=== PATIENT | female | born 1985 | race African-American/Black ===

== ENCOUNTER 2017-12-28 18:32 | Emergency (ER) | payer SELFPAY ==
[~2017-12-28] VITALS: Ht 170.2 cm; Wt 121.1 kg
[2017-12-28] MEDS ORDERED: PENICILLIN G BENZATHINE LA 1.2 MU TBX IM STA (19:29)
--- OUTSIDE RECORDS SUMMARY | 2018-01-05 12:09 | XMS REPORT | Clinical Summary ---
Author Author DANIELITO [facility] Address Unknown Phone Unavailable Care Team Providers Care Hand Molder Name Role Phone PCP Unavailable Allergies Active [...]
== END 2017-12-28 20:00 | disposition short-term general hospital (02) ==
LOC: ER 18:32
DX: J02.9 Acute pharyngitis, unspecified (principal)

== ENCOUNTER 2017-12-28 19:21 | Emergency (ER) | payer OTHER ==
[~2017-12-28] VITALS: Ht 170.2 cm; Wt 121.1 kg
[2017-12-28] MEDS ORDERED: PENICILLIN G BENZATHINE LA 1.2 MU TBX IM STA (19:40)
[2017-12-28] MEDS ORDERED: HYDROCODONE/APAP 5MG-325MG TAB PO ONE (19:45)
[2017-12-28 20:22] VITALS: BP 157/92
--- OUTSIDE RECORDS SUMMARY | 2018-01-05 12:09 | XMS REPORT | Clinical Summary ---
Author Author DANIELITO [facility] Address Unknown Phone Unavailable Care Team Providers Care Netbackup Engineer Name Role Phone PCP Unavailable Allergies Active Allergy Reactions Severity Noted Date Comments Ibuprofen Hives, Itching 05/13/2015 Iodinated Contrast- Oral Itching 02/28/2016 And Iv Dye Current Medications Prescription Sig. Disp. Refills Start End Date Status Date cyclobenzaprine Take 5 mg by mouth as Active (FLEXERIL) 5 MG tablet needed for Muscle spasms. diazePAM (VALIUM) 5 MG Take 1 tablet (5 mg 8 tablet 0 07/27/19 07/30/19 tablet total) by mouth every 8 18 18 (eight) hours as needed for Anxiety for up to 3 days. Max Daily Amount: 15 mg Active Problems Problem Noted Date Back pain 10/28/2016 Encounters Date Type Specialty Care Team Description 07/26/2017 Emergency Emergency Medicine Frank Gomez MD Neck pain (Primary Dx);Muscle spasm after 12/27/2016 Family History Medical History Relation Name Comments Hypertension Mother Relation Name Status Comments Mother Social History Tobacco Use Types Packs/Day Years Used Date Never Smoker Smokeless Tobacco: Never Used Alcohol Use Drinks/Week oz/Week Comments No Sex Assigned at Date Recorded Not on file Last Filed Vital Signs Vital Sign Reading Time Taken Blood Pressure 126/73 07/26/2017 9:48 PM CDT Pulse 82 07/26/2017 9:48 PM CDT Temperature 36.6 C (97.8 F) 07/26/2017 9:48 PM CDT Respiratory Rate 20 07/26/2017 9:48 PM CDT Oxygen Saturation 98% 07/26/2017 9:48 PM CDT Inhaled Oxygen - - Concentration Weight - - Height - - Body Mass Index - - Plan of Treatment Not on file Results Not on fileafter 12/27/2016
== END 2017-12-28 20:24 | disposition home or self-care (01) ==
LOC: FSED 19:21
DX: J02.0 Streptococcal pharyngitis (principal)
CPT/HCPCS: 96372; 99283; J0561

== ENCOUNTER 2018-12-04 10:48 | Emergency (ER) | payer OTHER ==
[~2018-12-04] VITALS: Ht 170.2 cm; Wt 125.3 kg
[2018-12-04] MEDS ORDERED: CYCLOBENZAPRINE10 MG PO (11:37)
[2018-12-04] MEDS ORDERED: ULTRAM50 MG PO (11:37)
[2018-12-04] MEDS ORDERED: TRAMADOL HCL 50 MG TAB PO ONE (11:45)
[2018-12-04 11:53] VITALS: BP 125/84
== END 2018-12-04 11:46 | disposition home or self-care (01) ==
LOC: FSED 10:48
DX: J00 Acute nasopharyngitis [common cold] (principal); G24.3 Spasmodic torticollis; Z88.6 Allergy status to analgesic agent
CPT/HCPCS: 83518; 93005; 99283

== ENCOUNTER 2019-02-18 13:50 | Emergency (ER) | payer OTHER ==
[~2019-02-18 13:50] MED LIST: CYCLOBENZAPRINE10 MG PO; ULTRAM50 MG PO
--- OUTSIDE RECORDS SUMMARY | 2019-02-18 13:53 | XMS REPORT ---
[facility] Address Unknown Phone Unavailable Care Team Providers Care Rn Lvn Name Role Phone GENE BLACKMAN YANNICK Unavailable Unavailable JUAN ALBERTO ROCHA Unavailable Unavailable Payers Payer Name Policy Type Policy Number Effective Date Expiration Date Problems This patient has no known problems. Allergies, Adverse Reactions, Alerts Allergy Name Allergy Type Status Severity Reaction(s) Onset Date Inactive Date Treating Clinician Comments ibuprofen DA Active SV 2018-09-22 00:00:00 ibuprofen DA Active SV 2018-09-20 00:00:00 ibuprofen DA Active SV 2016-12-26 00:00:00 Medications This patient has no known medications. Results Test Description Test Time Test Comments Text Results Atomic Results Result Comments RAD, FOOT, MIN 3 VIEWS, LEFT 2019-02-05 13:24:00 Reason for exam:->FOOT INJURYIs the patient ?->NoShould this be performed at the bedside?->No FINAL REPORT Exam: Left foot 3 views Clinical History: Foot injury Findings: There is no evidence of acute fracture or malalignment. The articular joints are well-preserved. The soft tissue is unremarkable. Impression: No radiographic evidence of acute osseous injury. Signed: Jonah Bowie MDReport Verified Date/Time: 02/05/2019 13:24:57 Reading Location: [facility] C013X [facility] Reading Room UCTS OF CONCEPTION 2018-09-28 19:07:00 RUN DATE: 09/29/18 [facility] PAGE 1 RUN TIME: 1041 Specimen Inquiry RUN USER: INTERFACE PATIENT: JOSE JIMÉNEZ LOC: MANJINDER U #: [id number] AGE/SX: 33/F ROOM: RE09/24/18REG DR: Ruth Ann Gudino MD : 89 BED: DIS: STATUS: [facility] TLOC: SPEC #: [id number] RECD: 09/24/18 STATUS: BLAISE REArleth #: [id number] JUSTIN: 09/24/18- SUBM DR: Ruth Ann Gudino MD ENTERED: 09/27/18 SP TYPE: POC[ OTHR : ORDERED: LEVEL IV CODES: [id number] - ENDOMETRIUM, NO PROCEDURES: LEVEL IV (Incomplete) TISSUES: ENDOMETRIUM, NOS - POC CLINICAL HISTORY Not provided (kr) FINAL DIAGNOSIS Designated "products of conception": - products of conception identified - block A2 is sent to [facility] for p57 and ploidy analysis to investigate the possibility of a molar , see results in addendum report ADDENDUM PENDING, SPECIMEN IS BEING SENT TO [facility] Tissue code 1 CPT code(s): 35400 pkg/wpd 09/28/18 GROSS DESCRIPTION ANATOMIC SOURCE OF TISSUE (per Requisition): Products of conception The specimen is received in a formalin-filled container, labeled with the patient's name and designated "pr oducts of conception". The specimen consists of an 8 x 7 x 1 cm aggregate of multiple monroe-red, focally hemorrhagic, soft, rubbery, and slightly papilliferous tissues admixed with clotted blood. There are no parts. Internet Assessor sections are submitted labeled A1 and A2. silvina/tank 09/27/18 @ 0951 MICROSCOPIC DESCRIPTION The specimen consists of several clusters of immature chorionic villi containing mild trophoblast proliferation that is mainly polar. Some of the villi have scalloped outlines and a few intravillous inclusions are identified. No central cisterns are identified. Nucleated red blood cells are seen in the vascular spaces. CONTINUED ON NEXT PAGE RUN DATE: 09/29/18 [facility] PAGE 2 RUN TIME: 1041 Specimen Inquiry RUN USER: INTERFACE SPEC #: [id number] PATIENT: JOSE JIMÉNEZ #[id number] (Continued) MICROSCOPIC DESCRIPTION (Continued) No structures are identified. biju/lane 09/28/18 Signed Diana Santana 09/28/18 1907 END OF REPORT PRODUCTS OF CONCEPTION 2018-09-28 19:07:00 RUN DATE: 10/04/18 [facility] PAGE 1 RUN TIME: 1418 Specimen Inquiry RUN USER: INTERFACE PATIENT: JOSE JIMÉNEZ LOC: MANJINDER U #: [id number] AGE/SX: ROOM: RE09/24/18REG DR: Ruth Ann Gudino MD : 89 BED: DIS: STATUS: [facility] TLOC: SPEC #: [id number] RECD: 09/24/18 STATUS: BLAISE RE #: [id number] JUSTIN: 09/24/18- SUBM DR: Ruth Ann Gudino MD ENTERED: 09/27/18 SP TYPE: POC[ OTHR DR: ORDERED: LEVEL IV ADDENDUM FINDINGS Addendum #1 Entered: 10/04/18 The following are the p57 and Ploidy Analysis received from [facility] on October 02, 2018 ADDENDUM FINAL DIAGNOSIS: - 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 Focally, some larger, slightly irregular, villi are also noted. Trophoblast proliferation is focal and generally polarized. No pseudoinclusions are seen. p57 stains villous trophoblast nuclei. The p57 (KIP2) gene (CDKN1C) is strongly paternally imprinted, being expressed from the maternal allele in most cases. Because complete moles contain only paternal genes, complete moles show absence or significantly reduced expression of p57 (KIP2) relative to partial moles or a hydropic abortus which contain both maternal and paternal genes. In normal placentas, partial moles and a hydropic abortus, P57 (KIP2) shows a strong and contiguous nuclear expression in cytotrophoblast and villous mesenchyme, irrespective of the morphology of the villi. In complete moles there is an absence of staining in the cytotrophoblast and villous mesenchyme while the intervillous trophoblast and decidua show strong expression and thus serves as a positive internal control. Ploidy study shows diploid DNA content in villous trophoblast nuclei. Combining the morphology, p57 expression and diploid DNA content, this is first trimester ch orionic villi with hydropic degeneration. IHC AND SPECIAL STAINS: All controls were reviewed and showed appropriate positive and negative reactivity. FLOW CYTOMETRY ANALYSIS RESULTS: CONTINUED ON NEXT PAGE RUN DATE: 10/04/18 [facility] PAGE 2 RUN TIME: 1418 Specimen Inquiry RUN USER: INTERFACE SPEC #: [id number] PATIENT: OJSE JIMÉNEZ #[id number] (Continued) ADDENDUM FINDINGS (Continued) DIPLOID DNA INDEX: 1.00 Reference Range: Diploid <=1.1 Aneuploid >1.1 S-Phase: 1.29 COMMENTS: A diploid DNA index may be seen with an abortus or complete mole. Please correlate with morphologic findings and p57 study. I acknowledge the above findings. Diana Santana M.D., Pathologist/ksr October 04, 2018 @ 0840 Addendum Signed Diana Santana 10/04/181417 (prelim) Diana Santana 10/04/18 141 CODES: [id number] - ENDOMETRIUM, NO PROCEDURES: LEVEL IV (Incomplete) TISSUES: ENDOMETRIUM, NOS - POC CLINICAL HISTORY Not provided (kr) FINAL DIAGNOSIS Designated "products of conception": - products of conception identified - block A2 is sent to [facility] for p57 and ploidy analysis to investigate the possibility of a molar , see results in addendum report ADDENDUM PENDING, SPECIMEN IS BEING SENT TO [facility] [employer] Tissue code 1 CPT code(s): 09879 pkg/wpd 09/28/18 CONTINUED ON NEXT PAGE RUN DATE: 10/04/18 [facility] PAGE 3 RUN TIME: 1418 Specimen Inquiry RUN USER: INTERFACE ---- SPEC #: [id number] PATIENT: JOSE JIMÉNEZ #[id number] (Continued) GROSS DESCRIPTION ANATOMIC SOURCE OF TISSUE (per Requisition): Products of conception The specimen is received in a formalin-filled container, labeled with the patient's name and designated "products of conception". The specimen consists of an 8 x 7 x 1 cm aggregate of multiple monroe-red, focally hemorrhagic, soft, rubbery, and slightly papilliferous tissues admixed with clotted blood. There are no parts. Internet Assessor sections are submitted labeled A1 and A2. neri 09/27/18 @ 0951 MICROSCOPIC DESCRIPTION The specimen consists of several clusters of immature chorionic villi containing mild trophoblast proliferation that is mainly polar. Some of the villi have scalloped outlines and a few intravillous inclusions are identified. No central cisterns are identified. Nucleated red blood cells are seen in the vascular spaces. No structures are identified. biju/wptiarra 09/28/18 Signed Diana Santana 09/28/18 1907 END OF REPORT CBC W/AUTO DIFF 2018-09-24 15:46:00 WHITE BLOOD CELL (test code=WBC) 8.0 K/mm3 6.6-12.1 RED BLOOD CELL (test code=RBC) 4.09 M/mm3 3.45-5.01 HEMOGLOBIN (test code=HGB) 11.9 g/dL 10.7-13.9 HEMATOCRIT (test code=HCT) 36.8 % 32.1-42.1 MEAN CELL VOLUME (test code=MCV) 90 fL 84.1-94.8 MEAN CELL HGB (test code=MCH) 29.1 pg 27-35 MEAN CELL HGB CONCETRATION (test code=MCHC) 32.3 gm/dL 32.2-34.1 RED CELL DISTRIBUTION WIDTH (test code=RDW) 14.1 % 12.4-16.5 PLATELET COUNT (test code=PLT) 312 K/mm3 133-385 IMMATURE PLATELET FRACTION (test code=IPF) 0.0 % 0.0-10.8 MEAN PLATELET VOLUME (test code=MPV) 9.9 fl 9.1-12.7 NEUTROPHIL % (test code=NT%) 65.8 % 56.5-79.4 LYMPHOCYTE % (test code=LY%) 27.0 % 14.3-34.3 MONOCYTE % (test code=MO%) 5.9 % 5.1-10.4 EOSINOPHIL % (test code=EO%) 0.9 % 0.1-3.0 BASOPHIL % (test code=BA%) 0.2 % 0.1-1.0 NEUTROPHIL # (test code=NT#) 5.3 K/mm3 LYMPHOCYTE # (test code=LY#) 2.2 K/mm3 MONOCYTE # (test code=MO#) 0.5 K/mm3 EOSINOPHIL # (test code=EO#) 0.07 K/mm3 BASOPHIL # (test code=BA#) 0.0 K/mm3 RBC MORPHOLOGY REQUIRED (test code=RBCM) NORMAL NORMAL PLATELET MORPHOLOGY REQUIRED (test code=PLTMR) NORMAL NORMAL - US PREG UT [id number] 22:23:00 Patient Name: JOSE JIMÉNEZ Unit No: [id number] EXAMS: CPT CODE: [id number] US PREG UT TRANSVAGINAL 96279 TRANSABDOMINAL AND TRANSVAGINAL OBSTETRICAL PELVIC ULTRASOUND INDICATION: . Vaginal bleeding.. TECHNIQUE: Transabdominal and transvaginal obstetrical pelvic ultrasound was performed with bernard scale and Doppler images. COMPARISONS: Obstetric ultrasound 09/20/2018 FINDINGS: TRANSABDOMINAL: The uterus measures 9.9 x 6.9 x 5.8 cm. There is an intrauterine gestational sac that measures 1.5 x 1.2 x 1.4 cm within the endometrial canal. The maternal right ovary measures 3.6 x 2 x 2.9 cm. The left ovary is not visualized with transabdominal technique. There is no intra-abdominal free fluid. Transvaginal pelvic ultrasound was performed in order to better visualize the pelvic structures. TRANSVAGINAL PELVIC ULTRASOUND: The uterus measures 5.5 x 6.4 x 7 cm. The cervix is closed and the cervical length is 3.5 cm. There is an incidental n abothian cyst in the cervix. There is a solitary intrauterine gestational s ac with yolk sac and pole. The pole length measures 0.7 cm, increa sed compared to prior where it had measured 0.4 cm. There is no heart mo tion detected. There was faint heart motion on 09/20/2018. The right o vary measures 4.4 x 2.8 x 2 cm and demonstrates normal blood flow. There is a corpus luteum in the right ovary that measures up to 2.1 cm. The left ovary measures 2.9 x 2.2 x 1.4 cm and demonstrates normal blood flow. There is a small to moderate amount of simple free fluid adjacent to the right ovary and corpus luteum. IMPRESSION: 1. There is a solitary intrauterine ge station with yolk sac and pole detected. Although there has been appro priate increase in size of the pole length compared to 09/20/2018, there is no heart motion detected on today's exam. heart motion was de tectable on 09/20/2018. I cannot confirm viability of the . I recomm end [facility] NAME: JOSE JIMÉNEZ Radiology Department PHYS: Heidi Arredondo MD [address] : 1985 AGE: 33 SEX: F [place], [place] [address] LOC: CandyERS PHONE #: [phone] EXAM DATE: 09/22/2018 STATUS: REG ER FAX #: [phone] RAD NO: Page 1 Signed Rep ort (CONTINUED) Patient Name: JOSE JIMÉNEZ Unit No: [id number] EXAMS: CPT CODE: [id number] US PREG UT TRANSVAGINAL 53935 <Continued> short-term follow-up evaluation with ultrasound and hCG to reevaluate. The estimated gestational age is 6 weeks and 4 days and the JJ is 05/10/2019. 2. There is a small to moderate amount of simple free fluid in the pelvis adjacent to the right ovary. There is a right ovarian corpus luteum. at 2223 Reported and signed by: Taras Mishra DO CC: Heidi Roper MD Technologist: Fanny Saxena Probe: [id number] Trnscrbd D/ (2223) [email or web address] Orig Print D/T: S: 09/22/2018 (2226) [facility] NAME: JOSE JIMÉNEZ Radiology Department PHYS: Heidi Arredondo MD [address] : 1985 AGE: 33 SEX: [place] [address] LOC: CandyERS PHONE #: [phone] EXAM DATE: 09/22/2018 STATUS: REG ER FAX #: [phone] RAD NO: Page 2 Signed Report Patient Name: JOSE JIMÉNEZ Unit No: [id number] EXAMS: CPT CODE: [id number] US PREG UT TRANSVAGINAL 44743 <Continued> [facility] NAME: JOSE JIMÉNEZ Radiology Department PHYS: ANNE MARIE.14 - Heidi Roper MD [address] : 1985 AGE: 33 SEX: F [place] [address] ACCT NO: [id number] LOC: MARIYA PHONE #: [phone] EXAM DATE: 05/2018 STATUS: REG ER FAX #: [phone] RAD NO: P age 5 Signed Report - US PREG EVAL 1ST [id number] 22:23:00 Patient Name: JOSE JIMÉNEZ Unit No: [id number] EXAMS: CPT CODE: [id number] US PREG EVAL 1ST TRIMTR 60242 TRANSABDOMINAL AND TRANSVAGINAL OBSTETRICAL PELVIC ULTRASOUND INDICATION: . Vaginal bleeding.. TECHNIQUE: Transabdominal and transvaginal obstetrical pelvic ultrasound was performed with bernard scale and Doppler images. COMPARISONS: Obstetric ultrasound 09/20/2018 FINDINGS: TRANSABDOMINAL: The uterus measures 9.9 x 6.9 x 5.8 cm. There is an intrauterine gestational sac that measures 1.5 x 1.2 x 1.4 cm within the endometrial canal. The maternal right ovary measures 3.6 x 2 x 2.9 cm. The left ovary is not visualized with transabdominal technique. There is no intra-abdominal free fluid. Transvaginal pelvic ultrasound was performed in order to better visualize the pelvic structures. TRANSVAGINAL PELVIC ULTRASOUND: The uterus measures 5.5 x 6.4 x 7 cm. The cervix is closed and the cervical length is 3.5 cm. There is an incidental nabothian cyst in the cervix. There is a solitary intrauterine gestational sac with yolk sac and pole. The pole length measures 0.7 cm, increased compared to prior where it had measured 0.4 cm. There is no heart motion detected. There was faint heart motion on 09/20/2018. The right ovary measures 4.4 x 2.8 x 2 cm and demonstrates normal blood flow. There is a corpus luteum in the right ovary that measures up to 2.1 cm. The left ovary measures 2.9 x 2.2 x 1.4 cm and demonstrates normal blood flow. There is a small to moderate amount of simple free fluid adjacent to the right ovary and corpus luteum. IMPRESSION: 1. There is a solitary intrauterine gestation with yolk sac and pole detected. Although there has been appropriate increase in size of the pole length compared to 09/20/2018, there is no heart motion detected on today's exam. heart motion was detectable on 09/20/2018. I cannot confirm viability of the . I recommend [facility] NAME: JOSE JIMÉNEZ Radiology Department PHYS: Heidi Arredondo MD [address] : 1985 AGE: 33 SEX: F [place] [address] LOC: Ayaka.ERS PHONE #: [phone] EXAM DATE: 09/22/2018 STATUS: REG ER FAX #: RAD NO: Page 1 Signed Rep ort (CONTINUED) Patient Name: JOSE JIMÉNEZ Unit No: [id number] EXAMS: CPT CODE: [id number] US PREG EVAL 1ST TRIMTR 54746 <Continued> short-term follow-up evaluation with ultrasound and hCG to reevaluate. The estimated gestational age is 6 weeks and 4 days and the JJ is 05/10/2019. 2. There is a small to moderate amount of simple free fluid in the pelvis adjacent to the right ovary. There is a right ovarian corpus luteum. at 2223 Reported and signed by: Taras Mishra DO CC: Heidi Roper MD Technologist: Fanny Saxena RDMS Probe: Trnscrbd D/ (2223) [email or web address] Orig Print D/T: S: 09/22/2018 (2226) [facility] NAME: JOSE JIMÉNEZ Radiology Department PHYS: Heidi Arredondo MD [address] : 1985 AGE: 33 SEX: [place] [address] LOC: Ayaka.ERS PHONE #: [phone] EXAM DATE: 09/22/2018 STATUS: REG ER FAX #: [phone] RAD NO: Page 2 Signed Report Patient Name: JOSE JIMÉNEZ Unit No: [id number] EXAMS: CPT CODE: [id number] US PREG EVAL 1ST TRIMTR 25476 <Continued> [facility] NAME: JOSE JIMÉNEZ Radiology Department PHYS: Heidi Arredondo MD [address] : 1985 AGE: 33 SEX: [place] [address] ACCT NO: [id number] LOC: MARIYA PHONE #: [phone] EXAM DATE: 05/2018 STATUS: REG ER FAX #: [phone] RAD NO: P age 5 Signed Report HCG SERUM 2018-09-22 20:33:00* Test Item Value Reference Range Comments HCG SERUM (test code=HCG) 36670 INTERPRETATION:VALUES BETWEEN 15-20 milliInternational units/mL NEED TO BERETESTED WITHIN 48 HOURS. All units for these ranges are in milliInternationalunits/mL0-1 WK AFTER CONCEPTION 0-50 1-2 WKS AFTER CONCEPTION 40-3002-3 WKS AFTER CONCEPTION 100-1,0003-4 WKS AFTER CONCEPTION 500-6,0001-2 MONTHS AFTER CONCEPTION 5,000-200,0002-3 MONTHS AFTER CONCEPTION 10,000-100,0002ND TRIMESTER 3,000-50,0003RD TRIMESTER 1,000-50,000 SPECIMENS WITH AN HCG LEVEL FROM 0-6 milliInternationalunits/mL SHOULD BE CONSIDERED NEGATIVE COMPREHENSIVE METABOLIC [id number] 20:25:00* Test Item Value Reference Range Comments SODIUM (test code=NA) 137 mEq/L 135-145 POTASSIUM (test code=K) 3.9 mEq/L 3.5-5.0 CHLORIDE (test code=CL) 103 mEq/L 100-115 CARBON DIOXIDE (test code=CO2) 27 mEq/L 22-31 ANION GAP (test code=GAP) 10.60 10-20 GLUCOSE (test code=GLU) 93 mg/dL 65-110 BLOOD UREA NITROGEN (test code=BUN) 9 mg/dL 7-18 GLOMERULAR FILTRATION RATE (test code=GFR) 82 ml/min >60 CREATININE (test code=CREAT) 0.9 mg/dL 0.5-1.0 TOTAL PROTEIN (test code=PROT) 7.2 gm/dL 6.3-8.2 ALBUMIN (test code=ALB) 3.1 gm/dL 3.4-4.8 CALCIUM (test code=CA) 9.2 mg/dL 8.4-10.2 BILIRUBIN TOTAL (test code=BILT) 0.3 mg/dL 0.2-1.0 Results verified by repeat analysis SGOT/AST (test code=AST) 21 units/L 15-37 SGPT/ALT (test code=ALT) 21 units/L 12-78 ALKALINE PHOSPHATASE TOTAL (test code=ALKP) 83 units/L 46-116 COMPREHENSIVE METABOLIC [id number] 20:13:00* Test Item Value Reference Range Comments SODIUM (test code=NA) 137 mEq/L 135-145 POTASSIUM (test code=K) 3.9 mEq/L 3.5-5.0 CHLORIDE (test code=CL) 103 mEq/L 100-115 CARBON DIOXIDE (test code=CO2) 27 mEq/L 22-31 ANION GAP (test code=GAP) 10.60 10-20 GLUCOSE (test code=GLU) 93 mg/dL 65-110 BLOOD UREA NITROGEN (test code=BUN) 9 mg/dL 7-18 GLOMERULAR FILTRATION RATE (test code=GFR) 82 ml/min >60 CREATININE (test code=CREAT) 0.9 mg/dL 0.5-1.0 TOTAL PROTEIN (test code=PROT) 7.2 gm/dL 6.3-8.2 ALBUMIN (test code=ALB) 3.1 gm/dL 3.4-4.8 CALCIUM (test code=CA) 9.2 mg/dL 8.4-10.2 BILIRUBIN TOTAL (test code=BILT) mg/dL 0.2-1.0 SGOT/AST (test code=AST) 21 units/L 15-37 SGPT/ALT (test code=ALT) 21 units/L 12-78 ALKALINE PHOSPHATASE TOTAL (test code=ALKP) 83 units/L 46-116 CBC W/AUTO [id number] 19:58:00* Test Item Value Reference Range Comments WHITE BLOOD CELL (test code=WBC) 9.8 K/mm3 6.6-12.1 RED BLOOD CELL (test code=RBC) 4.14 M/mm3 3.45-5.01 HEMOGLOBIN (test code=HGB) 11.9 g/dL 10.7-13.9 HEMATOCRIT (test code=HCT) 37.4 % 32.1-42.1 MEAN CELL VOLUME (test code=MCV) 90 fL 84.1-94.8 MEAN CELL HGB (test code=MCH) 28.7 pg 27-35 MEAN CELL HGB CONCETRATION (test code=MCHC) 31.8 gm/dL 32.2-34.1 RED CELL DISTRIBUTION WIDTH (test code=RDW) 14.2 % 12.4-16.5 PLATELET COUNT (test code=PLT) 293 K/mm3 133-385 IMMATURE PLATELET FRACTION (test code=IPF) 0.0 % 0.0-10.8 MEAN PLATELET VOLUME (test code=MPV) 9.9 fl 9.1-12.7 NEUTROPHIL % (test code=NT%) 68.4 % 56.5-79.4 LYMPHOCYTE % (test code=LY%) 25.1 % 14.3-34.3 MONOCYTE % (test code=MO%) 5.7 % 5.1-10.4 EOSINOPHIL % (test code=EO%) 0.4 % 0.1-3.0 BASOPHIL % (test code=BA%) 0.2 % 0.1-1.0 NEUTROPHIL # (test code=NT#) 6.7 K/mm3 LYMPHOCYTE # (test code=LY#) 2.5 K/mm3 MONOCYTE # (test code=MO#) 0.6 K/mm3 EOSINOPHIL # (test code=EO#) 0.04 K/mm3 BASOPHIL # (test code=BA#) 0.0 K/mm3 RBC MORPHOLOGY REQUIRED (test code=RBCM) NORMAL NORMAL PLATELET MORPHOLOGY REQUIRED (test code=PLTMR) NORMAL NORMAL UA RFLX MICR CULT IF [id number] 19:54:00* Test Item Value Reference Range Comments UA COLOR (test code=COLU) YELLOW YELLOW UA APPEARANCE (test code=APPU) Slightly-Cloudy CLEAR UA GLUCOSE DIPSTICK (test code=DGLUU) NEGATIVE NEG UA BILIRUBIN DIPSTICK (test code=BILU) NEGATIVE NEG UA KETONE DIPSTICK (test code=KETU) NEGATIVE NEG UA SPECIFIC GRAVITY (test code=SGU) 1.023 1.001-1.035 UA BLOOD DIPSTICK (test code=MARY) 3+ NEG UA PH DIPSTICK (test code=KENDRA) 5.0 5-9 UA PROTEIN DIPSTICK (test code=PROU) 1+ NEG UA UROBILINIOGEN DIPSTICK (test code=URO) NEGATIVE mg/dL NEG UA NITRITE DIPSTICK (test code=DEJON) NEG NEG UA LEUKOCYTE ESTERASE DIPSTICK (test code=LEUU) NEG NEG UA WBC (test code=WBCU) 0-2 #/hpf NONE SEEN UA RBC (test code=RBCU) TOO NUMEROUS TO CNT #/hpf NONE SEEN UA EPITHELIAL CELLS (test code=EPIU) RARE #/HPF RARE-FEW UA BACTERIA (test code=BACU) NEGATIVE /HPF RARE-FEW UA MUCUS (test code=MUCU) 2+ NONE SEEN Indication for culture: Suprapubic PainUR HCG [id number] 19:54:00* Test Item Value Reference Range Comments UR HCG QUAL (test code=HCGQLU) POSITIVE Indication for culture: Suprapubic PainUA RFLX MICR CULT IF INDICATED 2018-09-22 19:45:00* Test Item Value Reference Range Comments UA COLOR (test code=COLU) YELLOW UA APPEARANCE (test code=APPU) CLEAR UA GLUCOSE DIPSTICK (test code=DGLUU) NEGATIVE UA BILIRUBIN DIPSTICK (test code=BILU) NEGATIVE UA KETONE DIPSTICK (test code=KETU) NEGATIVE UA SPECIFIC GRAVITY (test code=SGU) 1.001-1.035 UA BLOOD DIPSTICK (test code=MARY) NEGATIVE UA PH DIPSTICK (test code=KENDRA) 5-9 UA PROTEIN DIPSTICK (test code=PROU) NEGATIVE UA UROBILINIOGEN DIPSTICK (test code=URO) mg/dL NEG UA NITRITE DIPSTICK (test code=DEJON) NEGATIVE UA LEUKOCYTE ESTERASE DIPSTICK (test code=LEUU) NEG UA WBC (test code=WBCU) #/hpf NONE SEEN UA EPITHELIAL CELLS (test code=EPIU) #/HPF RARE-FEW Indication for culture: Suprapubic PainUR HCG [id number] 19:45:00* Test Item Value Reference Range Comments UR HCG QUAL (test code=HCGQLU) POSITIVE Indication for culture: Suprapubic Pain- US TRANSVAGINAL [id number] 16:43:00 Patient Name: JOSE JIMÉNEZ Unit No: [id number] EXAMS: CPT CODE: [id number] US TRANSVAGINAL W/PELVIS [address] [facility] [address] [place], [place] [address] OBSTETRICAL ULTRASOUND REPORT Pat. Name: JOSE JIMÉNEZ Pat. No: [id number] Study Date: 09/20/2018 3:37pm , Age: 05 1985, 33 Pregnancies: 4, Para 2 LMP: 08/03/2018 GA by LMP: 06w6d GA by US: 06w2d GA Selected: 06w6d (LMP) JJ: 05/10/2019 Referring MD: Ermias Graham [employer] Attendant: Arleth Frost RDMS CPT4: TRANPL Admitting MD: Ermias Graham Hist/Ind: Scan 1: Vaginal Bleeding MEASU REMENTS AGE GROWTH EVALUATION Measurement GA R alvarado Srce %for GA Ratios ----- ---- ------- ----- CRL 0.5 cm 06w2d ([id number]-41t1t) Hadl CRL <05 GA for sonogram 06w2d ([id number]-97c3b) based on (CRL) Avg Cervical Length: 3.1 cm Heart Rate: 124 bpm MATERNAL ANATOMY Fibroids LxHxW (cm) 1: 0 .7 x 0.9 x 0.9 Loc: POST IM Ovaries LxHxW (cm) Right 3.6 x 2.0 x 3.0 Vol: 11.3cc Le ft 2.6 x 1.8 x 1.7 Vol: 4.2cc Ovarian Cysts LxHxW (cm) R1: 1.5 x 1.7 x 1.4 Desc: Mei us Luteum - CLI NICAL SUMMARY Type of Gestation: Grewal Intrauterine in varia ble presentation. size is appropriate for gestational age. nela wth: Consistent with normal growth motion and organs seen: heart motion seen Placental location: Forming Amniotic f luid volume is normal. Uterus and adnexa: [facility] NAME: JOSE JIMÉNEZ Radiology Department PHYS: D[place]. - Ermias Graham [address] [place] OB: 1985 AGE: 33 SEX: F [place] [address] LOC: CandyERS PHONE #: [phone] EXAM DATE: 09/20/2018 STATUS: DEP ER FAX #: [phone] RAD NO: Page 1 Signed Report (CONTINUED) Stuart vigil Name: JOSE JIMÉNEZ Unit No: [id number] EXAMS: CPT CODE: [id number] US TRANSVAGI NAL W/PELVIS 46737 <Continued> No significant abnormality is seen. FOLLOW UP INDICATED OR AT 18-20 WEEKS FOR ANATOMY. Thank you for allowing us to participate in the care of this patient. Juan Chavarria M.D. Electronic Signature 09/20/2018 04:43pm at 1643 Reported and signed by: Rani Chavarria MD CC: Ermias Graham MD Technologist: Arleth Frost, [facility] Probe: [id number] Trnscrbd D/ (1643) [email or web address] Orig Print D/T: S: 10/07/2018 (1431) [facility] NAME: JOSE JIMÉNEZ Radiology Department PHYS: DALLIN. - Ermias Graham [address] : 1985 AGE: 33 SEX: [place], [place] [address] ACCT NO: [id number] LOC: CandyERS PHONE #: [phone] EXAM DATE: 03/2018 STATUS: DEP ER FAX #: [phone] RAD NO: P age 4 Signed Report Patient N yvonne: JOSE JIMÉNEZ Unit No: [id number] EXAMS: CPT CODE: [id number] US TRANSVAGINAL W/PELVIS 31751 <Continued> [facility] NAME: JOSE JIMÉNEZ Radiology Department PHYS: DALLIN. Ermias Graham [address] : 1985 AGE: 33 SEX: F [place], [place] [address] ACCT NO: [id number] LOC: F.ERS PHONE #: [phone] EXAM DATE: 03/2018 STATUS: DEP ER FAX #: [phone] RAD NO: P age 5 Signed Report - US PREG EVAL 1ST [id number] 16:43:00 Patient Name: JOSE JIMÉNEZ Unit No: [id number] EXAMS: CPT CODE: [id number] US PREG EVAL 1ST TRIMTR [address] [facility] [place] [place] [address] [place], [place] [address] OBSTETRICAL ULTRASOUND REPORT Pat. Name: JOSE JIMÉNEZ Pat. No: [id number] Study Date: 09/20/2018 3:37pm , Age: 05 1985, 33 Pregnancies: 4, Para 2 LMP: 08/03/2018 GA by LMP: 06w6d GA by US: 06w2d GA Selected: 06w6d (LMP) JJ: 05/10/2019 Referring MD: ERMIAS GRAHAM Casino Attendant: Arleth Frost RDMS CPT4: [id number] Admitting MD: ERMIAS GRAHAM Hist/Ind: Scan 1: Vaginal Bleeding M EASUREMENTS AGE GROWTH EVALUATION Measurement GA Range Srce %for GA Ratios ----- ---- ------- - CRL 0.5 cm 06w2d ([id number]) Hadl CRL <05 GA for sonogram 06w2d ([id number]) based on (CRL) Avg Cervical Length: 3.1 cm Heart Rate: 124 bpm MATERNAL ANATOMY Fibroids LxHxW (cm) 1: 0 .7 x 0.9 x 0.9 Loc: POST IM Ovaries LxHxW (cm) Right 3.6 x 2.0 x 3.0 Vol: 11.3cc Le ft 2.6 x 1.8 x 1.7 Vol: 4.2cc Ovarian Cysts LxHxW (cm) R1: 1.5 x 1.7 x 1.4 Desc: Mei us Luteum - CLI NICAL SUMMARY Type of Gestation: Grewal Intrauterine in varia ble presentation. size is appropriate for gestational age. nela wth: Consistent with normal growth motion and organs seen: heart motion seen Placental location: Forming Amniotic f luid volume is normal. Uterus and adnexa: [facility] as NAME: JOSE JIMÉNEZ Radiology Department PHYS: DALLIN. - Ermias Grhaam [address] OB: 1985 AGE: 33 SEX: [place], [place] [address] LOC: MARIYA PHONE #: [phone] EXAM DATE: 09/20/2018 STATUS: REG ER FAX #: [phone] RAD NO: Page 1 Signed Report (CONTINUED) Patijustino nt Name: JOSE JIMÉNEZ Unit No: [id number] EXAMS: CPT CODE: [id number] US PREG EVAL 1ST TRIMTR 04730 <Continued> No significant abnormality is seen. FOLLOW UP INDICATED OR AT 18-20 WEEKS FOR ANATOMY. Thank you for allowing us to participate in the care of this patient. Juan Chavarria M.D. Electronic Signature 09/20/2018 04:43pm at 1643 Reported and signed by: Rani Chavarria MD CC: Ermias Graham MD Technologist: Arleth Frost RDMS Probe: Trnscrbd D/ ([id number]) [email or web address] Orig Print D/T: S: 09/20/2018 (1643) [facility] NAME: JOSE JIMÉNEZ Radiology Department PHYS: DALLIN.Alfred - HariErmias [address] : 1985 AGE: 33 SEX: F [place] [address] ACCT NO: [id number] LOC: CandyERS PHONE #: [phone] EXAM DATE: 03/2018 STATUS: REG ER FAX #: [phone] RAD NO: P age 4 Signed Report Patient N yvonne: JOSE JIMÉNEZ Unit No: [id number] EXAMS: CPT CODE: [id number] US PREG EVAL 1ST TRIMTR 56516 <Continued> [facility] NAME: JOSE JIMÉNEZ Radiology Department PHYS: DALLIN.Alfred - Ermias Graham [address] : 1985 AGE: 33 SEX: F [place] [address] ACCT NO: [id number] LOC: CandyERS PHONE #: [phone] EXAM DATE: 03/2018 STATUS: REG ER FAX #: [phone] RAD NO: P age 5 Signed Report HCG SERUM 2018-09-20 16:21:00* Test Item Value Reference Range Comments HCG SERUM (test code=HCG) 8990 INTERPRETATION:VALUES BETWEEN 15-20 milliInternational units/mL NEED TO BERETESTED WITHIN 48 HOURS. All units for these ranges are in milliInternationalunits/mL0-1 WK AFTER CONCEPTION 0-50 1-2 WKS AFTER CONCEPTION 40-3002-3 WKS AFTER CONCEPTION 100-1,0003-4 WKS AFTER CONCEPTION 500-6,0001-2 MONTHS AFTER CONCEPTION 5,000-200,0002-3 MONTHS AFTER CONCEPTION 10,000-100,0002ND TRIMESTER 3,000-50,0003RD TRIMESTER 1,000-50,000 SPECIMENS WITH AN HCG LEVEL FROM 0-6 milliInternationalunits/mL SHOULD BE CONSIDERED NEGATIVE PROTHROMBIN [id number] 15:58:00* Test Item Value Reference Range Comments PROTHROMBIN TIME PATIENT (test code=PTP) 11.9 secs 10.4-12.4 THROMBOPLASTIN TIME [id number] 15:58:00* Test Item Value Reference Range Comments THROMBOPLASTIN TIME PARTIAL (test code=PTT) 31.1 secs 22-38 COMPREHENSIVE METABOLIC [id number] 15:56:00* Test Item Value Reference Range Comments SODIUM (test code=NA) 139 mEq/L 135-145 POTASSIUM (test code=K) 4.0 mEq/L 3.5-5.0 CHLORIDE (test code=CL) 106 mEq/L 100-115 CARBON DIOXIDE (test code=CO2) 29 mEq/L 22-31 ANION GAP (test code=GAP) 8.50 10-20 GLUCOSE (test code=GLU) 86 mg/dL 65-110 BLOOD UREA NITROGEN (test code=BUN) 8 mg/dL 7-18 GLOMERULAR FILTRATION RATE (test code=GFR) 82 ml/min >60 CREATININE (test code=CREAT) 0.9 mg/dL 0.5-1.0 TOTAL PROTEIN (test code=PROT) 6.9 gm/dL 6.3-8.2 ALBUMIN (test code=ALB) 3.0 gm/dL 3.4-4.8 CALCIUM (test code=CA) 8.4 mg/dL 8.4-10.2 BILIRUBIN TOTAL (test code=BILT) 0.1 mg/dL 0.2-1.0 SGOT/AST (test code=AST) 14 units/L 15-37 SGPT/ALT (test code=ALT) 21 units/L 12-78 ALKALINE PHOSPHATASE TOTAL (test code=ALKP) 80 units/L 46-116 CBC W/AUTO [id number] 15:39:00* Test Item Value Reference Range Comments WHITE BLOOD CELL (test code=WBC) 7.4 K/mm3 6.6-12.1 RED BLOOD CELL (test code=RBC) 4.06 M/mm3 3.45-5.01 HEMOGLOBIN (test code=HGB) 12.0 g/dL 10.7-13.9 HEMATOCRIT (test code=HCT) 36.5 % 32.1-42.1 MEAN CELL VOLUME (test code=MCV) 90 fL 84.1-94.8 MEAN CELL HGB (test code=MCH) 29.6 pg 27-35 MEAN CELL HGB CONCETRATION (test code=MCHC) 32.9 gm/dL 32.2-34.1 RED CELL DISTRIBUTION WIDTH (test code=RDW) 14.2 % 12.4-16.5 PLATELET COUNT (test code=PLT) 271 K/mm3 133-385 IMMATURE PLATELET FRACTION (test code=IPF) 0.0 % 0.0-10.8 MEAN PLATELET VOLUME (test code=MPV) 9.7 fl 9.1-12.7 NEUTROPHIL % (test code=NT%) 59.3 % 56.5-79.4 LYMPHOCYTE % (test code=LY%) 31.7 % 14.3-34.3 MONOCYTE % (test code=MO%) 7.6 % 5.1-10.4 EOSINOPHIL % (test code=EO%) 0.8 % 0.1-3.0 BASOPHIL % (test code=BA%) 0.3 % 0.1-1.0 NEUTROPHIL # (test code=NT#) 4.4 K/mm3 LYMPHOCYTE # (test code=LY#) 2.3 K/mm3 MONOCYTE # (test code=MO#) 0.6 K/mm3 EOSINOPHIL # (test code=EO#) 0.06 K/mm3 BASOPHIL # (test code=BA#) 0.0 K/mm3 RBC MORPHOLOGY REQUIRED (test code=RBCM) NORMAL NORMAL PLATELET MORPHOLOGY REQUIRED (test code=PLTMR) NORMAL NORMAL [id number] 03:24:00* Test Item Value Reference Range Comments D-DIMER QUANTITATIVE (BEAKER) (test qank=800) 0.27 MG/L FEU <0.50 REGARDING D-DIMER RESULTS: Results of this D-Dimer test should always be interpr eted in conjunction with the patient's medical history, clinical presentation an d other findings. DVT clinical diagnosis should not be based on the results of Melchor SERNA D-Dimer alone.CT, CHEST WITH IV CONTRAST- PE TEST [id number] 01:21:00Addendum BeginsREPORT STATUS:A Addendum: At the request of Dr. Blackman, exam was repeated following placement of a new IV and an additional dose of IV contrast. Contrast opacification of the pulmonary arteries remain suboptimal. Pulmonary embolic disease cannot be excluded. Results, limitations and diagnostic options discussed with Dr. Blackman at 0120 hours. Signed: Evelina Munguia Verified Date/Time: 06/17/2018 01:21:27 Reading Location: [address] Reading RoomAddendum EndsFINAL REPORT EXAMINATION: CHEST CT / PE PROTOCOL CLINICAL HISTORY: Chest Pain. Shortness of breath. Tachycardia COMPARISON EXAMINATION: NONE TECHNIQUE: Following the administration of I.V. contrast, axial images were acquired through the thorax with the contrast bolus timed to peak opacification of the pulmonary arteries. However, the contrast bolus was delayed secondary to a technical issues which slowed the injection of contrast (? suboptimal IV access). After a brief delay, 70 cc of additional IV contrast was administered and additional tomographic images were acquired. Following postprocessing, coronal and sagittal reformatted images were created and reviewed. The exam was performed according to our departmental dose optimization program which includes automated exposure control, adjustment of the mA and/or kV according to patient's size and/or use of iterative reconstructive technique. FINDINGS: Suboptimal opacification of the pulmonary arteries limits evaluation for pulmonary disease. If there is persistent clinical concern for PE, consider d- dimer correlation, repeat PE protocol CT with additional IV contrast and/or nuclear medicine ventilation-perfusion imaging. The thoracic aorta is grossly normal in course and caliber. Although there is no definite evidence of dissec tion, motion degradation of the ascending thoracic aorta limits further characte rization. The heart is enlarged. No evidence of a pericardial effusion. Subtle i ncreased attenuation in the superior-anterior mediastinum is statistically and m orphologically favored to reflect residual thymic tissue. The esophagus is decom pressed. Subtle opacities are noted in both lungs. A component of atelectasis is favored. No definite evidence of a discrete pneumonia, pulmonary edema, pleural effusion, pneumothorax or pneumomediastinum. Trachea and central airways are gr ossly unremarkable. No definite evidence of an acute process involving the incom pletely visualized upper abdomen. No definite evidence of an acute osseous abnor mality. IMPRESSION: Limited study for PE as detailed above. Cardiac enlargement . Results, limitations and diagnostic options discussed with Dr. Blackman at 2350 [address] rs. Signed: Evelina Munguia Verified Date/Time: 06/16/2018 23:58:56 Readi ng Location: [address] Reading Room , CHEST, 2 [id number] 15:02:00Reason for exam:->NASAL CONGESTIONx 2 daysReason for exam:->COUGHReason for exam:->CHEST PAINIs the patient ?->NoShould this be performed at the bedside?->NoFINAL REPORT Chest two views Discussion: Heart, lungs, bones, soft tissues unremarkable. No effusion or pneumothorax. Signed: Desi Griffith MDReport Verified Date/Time: 09/28/2017 15:02:51 Reading Location: [facility] [address] Reading Room ALYSIS W/ [id number] 16:37:00* Test Item Value Reference Range Comments COLOR (BEAKER) (test vyqa=531) Yellow CLARITY (BEAKER) (test aoep=892) Clear SPECIFIC GRAVITY UA (BEAKER) (test ofbh=858) 1.020 1.001-1.035 PH UA (BEAKER) (test pdeu=001) 6.5 5.0-8.0 PROTEIN UA (BEAKER) (test xmhz=585) Negative Negative GLUCOSE UA (BEAKER) (test mdlb=409) Negative Negative KETONES UA (BEAKER) (test bebc=909) Negative Negative BILIRUBIN UA (BEAKER) (test jzfk=502) Negative Negative BLOOD UA (BEAKER) (test rlqs=656) Negative Negative NITRITE UA (BEAKER) (test evha=672) Negative Negative LEUKOCYTE ESTERASE UA (BEAKER) (test lfdj=806) Negative Negative UROBILINOGEN UA (BEAKER) (test czhx=764) 0.2 mg/dL 0.2-1.0 BACTERIA (BEAKER) (test etcl=400) Moderate MUCUS (BEAKER) (test lfom=7758) Moderate RBC UA-MANUAL (BEAKER) (test ahwb=3355) <5 /HPF WBC UA-MANUAL (BEAKER) (test drgp=3715) <5 /HPF SQUAMOUS EPITHELIAL MANUAL (BEAKER) (test syij=4036) 10- / SOURCE([place]) (test qpba=1918)
--- NOTE | 2019-02-18 14:59 | NUR ---
pt eloped when called back to a room, pt was not in waiting room.
[2019-02-18] MEDS ORDERED: ONDANSETRON HCL INJ 2MG/ML 2ML 2 MG/ML VIAL IV STA (15:37)
[2019-02-18] MEDS ORDERED: DIAZEPAM INJ 5 MG/ML 2 ML IV ONE (15:45)
[2019-02-18] MEDS ORDERED: SODIUM CHLORIDE 0.9% 1000ML 1,000 ML IV SCH (15:45)
== END 2019-02-18 14:59 | disposition left against medical advice (07) ==
LOC: FSED 13:50
DX: Z53.21 Procedure and treatment not carried out due to patient leaving prior to being seen by health care provider (principal)

== ENCOUNTER 2019-02-18 14:48 | Emergency (ER) | payer OTHER ==
[~2019-02-18] VITALS: Ht 170.2 cm; Wt 125.2 kg
[2019-02-18 15:02] VITALS: BP 136/95
[2019-02-18] MEDS ORDERED: KETOROLAC TROMETHAMINE 60 MG/2 ML VIAL ONE (15:13)
[2019-02-18] MEDS ORDERED: HYDROCODONE/APAP 10MG-325MG TAB PO ONE (15:15)
[2019-02-18] MEDS ORDERED: KETOROLAC TROMETHAMINE 60 MG/2 ML VIAL IM ONE (15:15)
== END 2019-02-18 15:17 | disposition home or self-care (01) ==
LOC: ER 14:53
DX: K08.89 Other specified disorders of teeth and supporting structures (principal)
CPT/HCPCS: 99282; J1885

== ENCOUNTER 2019-06-14 21:19 | Emergency (ER) | payer OTHER ==
[~2019-06-14] VITALS: Ht 170.2 cm; Wt 124.3 kg
[2019-06-14] MEDS ORDERED: ACETAMINOPHEN 325 MG TAB PO ONE (22:30)
[2019-06-14] MEDS ORDERED: SODIUM CHLORIDE 0.9% 1000ML 1,000 ML ONE (22:34)
[2019-06-14] MEDS ORDERED: ACETAMINOPHEN 325 MG TAB ONE (22:34)
[2019-06-14] MEDS: SODIUM CHLORIDE 0.9% 1000ML 1,000 ML IV SCH (22:48)
--- NOTE | 2019-06-14 23:21 | Diagnostic Imaging Report ---
EXAMINATION: CXR 2 VIEW - HOPD INDICATION: Cough, cold, fever, mid back pain COMPARISON: None FINDINGS: TUBES and LINES: None. LUNGS: Normal lung volumes. Mild central bronchial wall thickening. No consolidations. PLEURA: No pleural effusion or pneumothorax. HEART AND MEDIASTINUM: The cardiomediastinal silhouette is unremarkable. BONES AND SOFT TISSUES: No acute osseous lesion. Soft tissues are unremarkable. UPPER ABDOMEN: No free air under the diaphragm. There are cholecystectomy clips. IMPRESSION: Findings of bronchitis. Signed by: Taras Hankins DO on 06/14/2019 11:17 PM
--- NOTE | 2019-06-14 23:54 | NUR ---
PT ASLEEP LYING ON R-SIDE. RAIL UP BEHIND PTS BACK
[2019-06-15] MEDS ORDERED: SODIUM CHLORIDE 0.9% 500ML 500 ML ONE (00:51)
[2019-06-15] MEDS ORDERED: CEFTRIAXONE SOD 1 GM VIAL ONE (00:51)
[2019-06-15] MEDS ORDERED: SODIUM CHLORIDE 0.9% 1000ML 1,000 ML IV SCH (01:00)
[2019-06-15] MEDS ORDERED: ACETAMINOPHEN 325 MG TAB PO ONE ×2 (01:00→03:45)
[2019-06-15] MEDS ORDERED: SODIUM CHLORIDE 0.9% 500ML 500 ML IV ONE (01:15)
[2019-06-15] MEDS ORDERED: CEFTRIAXONE SOD 1 GM/NS 50 ML 50 ML IV ONE (01:15)
[2019-06-15] MEDS ORDERED: CEFDINIR300 MG PO (02:01)
--- NOTE | 2019-06-15 03:36 | NUR ---
PT SWABBED FOR COVID 19 BY SURINDER Florez RN FROM [facility] ER. SPECIMENS TRANSPORTED TO [facility] BY SURINDER MURPHY
[2019-06-15 05:24] VITALS: BP 169/109
== END 2019-06-15 04:02 | disposition home or self-care (01) ==
LOC: FSED 21:19
DX: R50.9 Fever, unspecified (principal); R05 Cough; J20.9 Acute bronchitis, unspecified; B34.9 Viral infection, unspecified
CPT/HCPCS: 71046; 80053; 80076; 81003; 81025; 85025; 87400; 87633; 87635; 99284; J0696; J7030; J7040

== ENCOUNTER 2019-06-19 17:47 | Inpatient (IN) | payer OTHER ==
[~2019-06-19] VITALS: Ht 170.2 cm; Wt 120.2 kg
[~2019-06-19 17:47] MED LIST changes: +CEFDINIR300 MG PO
[2019-06-19] MEDS ORDERED: SODIUM CHLORIDE 0.9% 1000 ML BAG IV SCH (18:00)
[2019-06-19] MEDS ORDERED: PROMETHAZINE 25MG/ NS 50ML (IV) IV STA (18:12)
[2019-06-19] MEDS ORDERED: ONDANSETRON HCL INJ 2MG/ML 2ML 2 MG/ML VIAL IV ONE (18:15)
[2019-06-19] MEDS ORDERED: SODIUM CHLORIDE 0.9% 1000ML 1,000 ML IV ONE (18:15)
--- NOTE | 2019-06-19 18:46 | NUR ---
PER ER MD, NO BOLUS D/T COVID.
[2019-06-19] MEDS ORDERED: SODIUM CHLORIDE 0.9% 1000ML 2,000 ML ONE (18:52)
[2019-06-19] MEDS ORDERED: PROMETHAZINE HCL (IM) 25 MG/ML VIAL ONE (18:52)
[2019-06-19] MEDS: SODIUM CHLORIDE 0.9% 1000ML 1,000 ML IV SCH ×2 (19:33→22:45)
--- NOTE | 2019-06-19 20:38 | Diagnostic Imaging Report ---
EXAMINATION: CXR 1 [facility] INDICATION: Covid positive, short of breath COMPARISON: chest x-ray 06/14/2019 FINDINGS: TUBES and LINES: None. LUNGS: Low lung volumes. Mild central bronchial wall thickening. Subtle bilateral infrahilar and left basilar haziness. No consolidations. PLEURA: No pleural effusion or pneumothorax. HEART AND MEDIASTINUM: The cardiomediastinal silhouette is unremarkable. BONES AND SOFT TISSUES: No acute osseous lesion. Soft tissues are unremarkable. UPPER ABDOMEN: No free air under the diaphragm. There are cholecystectomy clips. IMPRESSION: Persistent findings of bronchitis, now with increased mild bilateral infrahilar and left basilar haziness can be due to atelectasis or pneumonia. Low lung volumes. Signed by: Taras Hankins DO on 06/19/2019 8:35 PM
[2019-06-19] MEDS ORDERED: ACETAMINOPHEN 325 MG TAB PO PRN (20:45)
[2019-06-19] MEDS ORDERED: BENZONATATE 100 MG CAP PO PRN (20:45)
[2019-06-19] MEDS ORDERED: ZOLPIDEM TARTRATE 5 MG TAB PO PRN (20:45)
[2019-06-19 20:53] VITALS: BP 116/78
--- NOTE | 2019-06-19 20:53 | NUR ---
PT ARRIVED BY STRETCHER TO ROOM 178. PT IS AAOX3, RR EVEN AND NON-LABORED, ON ROOM AIR. PT AMBULATED FORM STRETCHER TO BATHROOM AND TO HOSPITAL BED. STEADY GAIT NOTED. ORIENTED PT TO HOSPITAL ROOM, CALL LIGHT, PHONE, BED CONTROLS AND LIGHTS. MD Rocio LAURA AT BEDSIDE TO ASSESS. LEFT PT LAYING SEMI FOWLERS IN BED, BED IN LOW LOCKED POSITION, SIDE RAILS UPX2, CALL LIGHT AND PHONE WITHIN REACH.
[2019-06-19] MEDS ORDERED: TRAMADOL HCL 50 MG TAB PO SCH (21:00)
[2019-06-19 21:20] VITALS: BP 116/78
--- NOTE | 2019-06-19 21:36 | Consultation ---
DATE OF CONSULTATION: Pulmonary Consultation. HISTORY OF PRESENT ILLNESS: The patient is a 33-year-old woman. She has a history of mild asthma as a child, but has not used any inhalers recently. She traveled with her to a Gala in [place] about a month ago. 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 Over the past five days, she has noticed fevers. She went to the emergency department four days ago. She had a viral serology that was positive for coronavirus. She has continued to have fevers. Today, she had some nausea and vomiting as well as incomplete increased malaise. She denies any cough or difficulty breathing. After arriving in the [facility] today, she received a liter of fluids and now feels much better. She also received some Phenergan which she believes helped. PAST SURGICAL HISTORY: D and C. PAST MEDICAL HISTORY: History of mild asthma as a child. SOCIAL HISTORY: The patient is not a smoker. She is not a drinker. She did travel to [place] for a Gala with her about a month ago. 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 FAMILY HISTORY: Her also has a Covid-19. REVIEW OF SYSTEMS: She did have some fevers at home. She has had some headache and malaise. She had no neck pain. She did not have chest pain or cough. She denies difficulty breathing. She had nausea and some vomiting. She has no leg edema. PHYSICAL EXAMINATION: VITAL SIGNS: The patient is afebrile. Her T-max was 99.5. HEENT: Shows no facial swelling or erythema. CARDIAC: Reveals a regular rate and rhythm with normal S1, S2. LUNGS: Auscultation of lungs reveals clear breath sounds bilaterally. There is no wheezing. ABDOMEN: Soft, nontender. There is no rebound or guarding. EXTREMITIES: Show no leg edema or calf tenderness. There is no cyanosis or clubbing. SKIN: Shows no rashes. NEUROLOGICAL: Shows no focal abnormalities. RADIOGRAPHIC DATA: Chest x-ray shows mild increased bilateral infrahilar and left basilar haziness. IMPRESSION: 1. Viral pneumonia. 2. Viral syndrome secondary to Covid-19. 3. Dehydration. PLAN: 1. Complete administration of IV fluids. 2. Antiemetics. 3. Review laboratory blood tests. 4. The patient is stable to be discharged home and should complete her self quarantine at home. She is not to return to work. 5. Contact health department for screening of contacts. MD JORGE A Shepherd/F[facility]OM /[id number]
[2019-06-19] MEDS ORDERED: TRAMADOL HCL 50 MG TAB PO PRN (22:00)
--- NOTE | 2019-06-19 22:13 | NUR ---
SPOKE WITH MD CONWAY CONCERNING CONSULTATION, NEW ORDERS RECEIVED.
[2019-06-19] MEDS: CEFTRIAXONE SOD 1 GM/NS 50 ML 50 ML IV SCH (22:40)
[2019-06-19 23:10] VITALS: BP 116/78
[2019-06-19] MEDS: AZITHROMYCIN 500MG/NS 250 ML 250 ML IV SCH (23:31)
[2019-06-20] VITALS (8 sets, daily range): BP systolic 102–132; BP diastolic 61–81
--- NOTE | 2019-06-20 01:51 | NUR ---
ALERTED TO PATIENTS ROOM BY PUMP BEEPING. PT RESTING 16 RR/MIN, NO S/SX OF DISTRESS NOTED. PLUGGED PUMP IN FOR LOW BATTERY. LEFT PT LAYING SEMI FOWLERS IN BED, BED IN LOW LOCKED POSITION, SIDE RAILS UPX2, CALL LIGHT AND PHONE WITHIN REACH.
--- NOTE | 2019-06-20 04:50 | NUR ---
BLOOD DRAWN THROUGH (R) HAND FOR AM LABS. PRESSURE AND DRESSING APPLIED. BLOOD DELIVERED TO LAB.
[2019-06-20 05:08] LABS: BASOPHILS % 0.4 % (0.0-1.0); EOSINOPHILS # (AUTO) 0.1 (0.0-0.4); EOSINOPHILS % 2.2 % (0.0-6.0); HEMATOCRIT 36.2 % (34.2-44.1); HEMOGLOBIN 11.8 g/dL (12.0-16.0); LYMPHOCYTES # (AUTO) 1.9 (1.0-3.2); LYMPHOCYTES % 68.5 % (18.0-39.1); MEAN CORPUSCULAR HEMOGLOBIN 28.6 pg (28-32); MEAN CORPUSCULAR HGB CONC 32.6 g/dL (31-35); MEAN CORPUSCULAR VOLUME 87.9 fL (81-99); MONOCYTES # (AUTO) 0.2 (0.2-0.8); MONOCYTES % 8.1 % (4.4-11.3); NEUTROPHILS # (AUTO) 0.6 (2.1-6.9); NEUTROPHILS % 20.4 % (38.7-80.0); PLATELET COUNT 223 x10e3/uL (140-360); RED BLOOD COUNT 4.12 x10e6/uL (3.6-5.1); RED CELL DISTRIBUTION WIDTH 13.8 % (11.7-14.4)
[2019-06-20 05:40] LABS: ALANINE AMINOTRANSFERASE 41 IU/L (0-55); ALBUMIN 3.1 g/dL (3.5-5.0); ALKALINE PHOSPHATASE 73 IU/L (40-150); ANION GAP 9.6 mmol/L (8-16); BLOOD UREA NITROGEN 6 mg/dL (7-26); BUN/CREATININE RATIO 8 (6-25); CALCIUM 8.2 mg/dL (8.4-10.2); CARBON DIOXIDE 20 mmol/L (22-29); CHLORIDE 114 mmol/L (98-107); CREATININE, SERUM 0.76 mg/dL (0.57-1.11); EST GLOMERULAR FILTRATION RATE > 60 ML/MIN (60-); GLUCOSE 105 mg/dL (74-118); POTASSIUM 3.6 mmol/L (3.5-5.1); SODIUM 140 mmol/L (136-145)
--- NOTE | 2019-06-20 07:13 | NUR ---
report received from overnight RN. patient sleeping in bed, IV fluids running. WCTM.
[2019-06-20 09:11] LABS: LYMPHOCYTES % (MANUAL) 73 % (19-48); MONOCYTES % (MANUAL) 8 % (3.4-9.0); NEUTROPHILS % (MANUAL) 19 % (40-74); PLATELET ESTIMATE ADEQUATE; PLATELET MORPHOLOGY COMMENT NORMAL; RBC MORPHOLOGY COMMENT NORMAL
[2019-06-20] MEDS ORDERED: ALBUTEROL SULFATE HFA 8GM INHALATION AEROSOL INH PRN (10:00)
--- NOTE | 2019-06-20 10:04 | Progress Note ---
DATE: SUBJECTIVE: The patient had some recurrent nausea this morning. She has some malaise. She is afebrile. She has no dyspnea or cough. OBJECTIVE: VITAL SIGNS: The patient is afebrile. Vital signs are stable. HEENT: Shows no facial swelling or erythema. CARDIAC: Reveals regular rate and rhythm with normal S1 and S2. LUNGS: Auscultation of lungs clear breath sounds bilaterally. There is no wheezing. ABDOMEN: Soft, nontender. There is no rebound or guarding. EXTREMITIES: Show no leg edema or calf tenderness. There is no cyanosis clubbing. SKIN: Shows no rashes. NEUROLOGICAL: Shows no focal abnormalities. ASSESSMENT: 1. Viral pneumonia. 2. Viral syndrome secondary to COVID-19. 3. Dehydration. 4. Nausea. PLAN: 1. The patient is improved and could be discharged home for self-quarantine. 2. Antiemetics and antipyretics as needed at home. 3. Contact Health Department for screening of any known contacts. John Almanzar MD [facility] /[id number]
[2019-06-20] MEDS: SODIUM CHLORIDE 0.9% 1000ML 1,000 ML IV SCH (10:12)
--- NOTE | 2019-06-20 16:50 | Consultation ---
DATE OF CONSULTATION: 06/20/2019 REASON FOR CONSULTATION: Acute viral illness, COVID 19 illness, and asthma exacerbation. HISTORY OF PRESENT ILLNESS: This patient was a very pleasant 33-year-old female with history of asthma, has not used inhaler for several years, comes in with fever and chills. The patient has been sick for a week. She went to an outside facility. COVID 19 was tested, came back positive. She was at home for another day, but she became worse with fever, nausea, not feeling well, felt that she is more short of breath. She has some cough, so the patient was in the emergency room to be admitted. I discussed the case with the emergency room yesterday. Also, called in yesterday and the patient was seen earlier hour in the morning. She states she is feeling better since she came here, however, she is still having shortness of breath. The patient is lying in bed comfortably. PAST MEDICAL HISTORY: Significant for asthma. Did not take medication or inhaler for years. PAST SURGICAL HISTORY: Denies. ALLERGIES: NKA. SOCIAL HISTORY: There is no smoking, drug abuse, or alcohol abuse. A month ago, she was in [place] trip with her . Her kids live with her mother and her father. She was in a Gala about a month ago. The patient works in the [employer]. REVIEW OF SYSTEMS: At the present time, fever, cough, shortness of breath, but she looks really comfortable. Her O2 saturation was 90 something. When she first came her, white count was 2.73, hemoglobin 11, hematocrit 36. Her neutrophils are 20 and lymphocytes 68.5. Sodium 140, potassium 3.6, creatinine 0.76. Lactic acid 0.9. PHYSICAL EXAMINATION: GENERAL: She is currently alert, oriented, does not seem acute distress. VITALS: Stable, currently afebrile. HEENT: She is not icteric. NECK: Supple. CHEST: Clear bilateral. HEART: S1-S2, no murmurs. ABDOMEN: Soft, bowel sounds present. No tenderness. EXTREMITIES: No edema. IMPRESSION: 1. COVID-19 bronchitis, upper respiratory infection, concerned about superimposed bacterial bronchitis. She is currently on Rocephin and azithromycin. 2. Dehydration, IV fluids. 3. History of asthma, the patient was encouraged to use her inhaler as needed. I had a very long discussion with her in detail. Discussed with her about what to do when she goes home about social isolation and washing hand. MD ZAK Garcia/[facility] /[id number]
[2019-06-20] MEDS: CEFTRIAXONE SOD 1 GM/NS 50 ML 50 ML IV SCH (22:15)
[2019-06-20] MEDS: AZITHROMYCIN 500MG/NS 250 ML 250 ML IV SCH (22:15)
[2019-06-21] VITALS: BP 113/68
[2019-06-21] MEDS: SODIUM CHLORIDE 0.9% 1000ML 1,000 ML IV SCH ×3 (00:30→11:25)
[2019-06-21 04:00] VITALS: BP 130/64
[2019-06-21 08:00] VITALS: BP 121/77
[2019-06-21 09:36] LABS: EOSINOPHILS # (AUTO) 0.1 (0.0-0.4); EOSINOPHILS % 3.3 % (0.0-6.0); HEMATOCRIT 35.6 % (34.2-44.1); HEMOGLOBIN 11.6 g/dL (12.0-16.0); LYMPHOCYTES # (AUTO) 1.6 (1.0-3.2); LYMPHOCYTES % 56.5 % (18.0-39.1); MEAN CORPUSCULAR HEMOGLOBIN 28.4 pg (28-32); MEAN CORPUSCULAR HGB CONC 32.6 g/dL (31-35); MEAN CORPUSCULAR VOLUME 87.3 fL (81-99); MONOCYTES # (AUTO) 0.2 (0.2-0.8); MONOCYTES % 6.2 % (4.4-11.3); NEUTROPHILS # (AUTO) 0.9 (2.1-6.9); PLATELET COUNT 173 x10e3/uL (140-360); RED BLOOD COUNT 4.08 x10e6/uL (3.6-5.1); RED CELL DISTRIBUTION WIDTH 13.7 % (11.7-14.4)
[2019-06-21 11:22] LABS: EOSINOPHILS % (MANUAL) 1 % (0-7); LYMPHOCYTES % (MANUAL) 67 % (19-48); MONOCYTES % (MANUAL) 5 % (3.4-9.0); NEUTROPHILS % (MANUAL) 27 % (40-74); PLATELET ESTIMATE ADEQUATE; PLATELET MORPHOLOGY COMMENT NORMAL; RBC MORPHOLOGY COMMENT NORMAL
--- NOTE | 2019-06-21 11:32 | NUR ---
[id number] albuterol prn astma
[2019-06-21 11:54] VITALS: BP 131/65
--- NOTE | 2019-06-21 11:54 | Progress Note ---
DATE: SUBJECTIVE: Ms. Florian is feeling much better today. On review of systems, HEENT negative. Pulmonary negative. There is no shortness of breath. No cough. Her blood cultures are negative. Her white count remains at 2.76, hemoglobin 11.6. Her sodium 140, potassium 3.6. O2 saturation, I was told it was 98 on room air. REVIEW OF SYSTEMS: As mentioned above: HEENT: Negative. PULMONARY: Negative at present time. : Negative. PHYSICAL EXAMINATION: GENERAL: She is currently alert, oriented, does not seem to be in acute distress. VITAL SIGNS: Stable. Afebrile. IMPRESSION: Acute bronchitis/pneumonia due to COVID-19, clinically doing well. The patient to be discharged home with supportive care. Follow up in 2 weeks. I again stressed with her that she have to stay home for the next 2 weeks. Social isolation discussed in details with the patient. Discussed in detail about discharge planning and the medical team and her physician. MD ZAK Garcia/[facility] /[id number]
--- NOTE | 2019-06-21 12:00 | NUR ---
CALLED JOHN AND GOT ESTIMATE FOR TRANSPORT TO [facility] VEHICLE JOHN STATES 247.55 CALLED AND SPOKE WITH FE AT [facility] AND SHE STATES THEY WILL BILL INSURANCE AND WHAT ISNT COVERED WILL LET US KNOW. SPOKE WITH NURSE ADMIN, [facility] WILL BE HERE IN APPROX 1 HOUR TO HAND [facility] PT AND RETURN TO VEHICLE AT [facility].
--- NOTE | 2019-06-21 12:39 | NUR ---
PATIENT DISCHARGED. IV ACCESS REMOVED- BLEEDING CONTROLLED AND DRESSING APPLIED. TELEMETRY REMOVED. EMS ARRANGED TO TRANSPORT PATIENT TO HER VEHICLE, AT OFFSITE LOCATION. ALL DISCHARGE INSTRUCTIONS REVIEWED WITH PATIENT. PATIENT AND SPOUSE VERBALIZED UNDERSTANDING OF COVID ISOLATION GUIDELINES. PATIENT AWARE OF FOLLOW UP NEEDED WITH DR. CONWAY. WAITING FOR TRANSPORT AT THIS TIME. MARIANO.
--- NOTE | 2019-06-21 14:25 | Progress Note ---
DATE: SUBJECTIVE: The patient feels better. She is not having fever or cough. PHYSICAL EXAMINATION: VITAL SIGNS: The patient is afebrile. The vital signs are stable. HEENT: Shows no facial swelling or erythema. CARDIAC: Reveals a regular rate and rhythm with normal S1 and S2. LUNGS: Auscultation of lungs reveals clear breath sounds bilaterally. There is no wheezing. ABDOMEN: Soft and nontender. There is no rebound or guarding. EXTREMITIES: Shows no leg edema or calf tenderness. IMPRESSION: COVID-19 infection. PLAN: 1. The patient will be discharged home. 2. She will complete Zithromax at home. 3. Self-quarantine. MD JORGE A Shepherd/[facility] /[id number]
--- NOTE | 2019-06-21 14:33 | NUR ---
[facility] EMS TRANSPORTED PATIENT OFF UNIT IN MASK TO GO TO HER PERSONAL VEHICLE. PATIENT IN STABLE CONDITION.
--- NOTE | 2019-07-28 04:21 | Discharge Summary ---
FINAL DIAGNOSIS: COVID-19 pneumonia. CONSULTANTS: 1. Dr. Pan, Infectious Disease. 2. Dr. Almanzar, Pulmonary. PROCEDURES/STUDIES PERFORMED: None. HISTORY: Per H and P. HOSPITAL COURSE: The patient was admitted. Empirically, the patient was given Rocephin and azithromycin, and the patient was discharged home. The patient was told to stay home for 14 days and follow up with Dr. Pan. CONDITION ON DISCHARGE: Improved. DISCHARGE MEDICATIONS: Please see medication reconciliation form. Yiching MD RICHARD Stauffer/[facility] /[id number]
== END 2019-06-21 15:05 | disposition home or self-care (01) | DRG 195 ==
LOC: FSED 17:47 → ERHOLD 19:29 → IMCU 21:07
PROVIDERS: ADMIT Internal Medicine; ATTEND Internal Medicine
DX: J12.9 Viral pneumonia, unspecified (principal); B97.29 Other coronavirus as the cause of diseases classified elsewhere; E86.0 Dehydration; J20.8 Acute bronchitis due to other specified organisms
CPT/HCPCS: 36415; 71045; 80053; 83605; 85025; 87040; 93005; 99251; 99285; J0456; J0696; J2405; J2550; J7030

== ENCOUNTER 2019-09-11 04:45 | Emergency (ER) | payer OTHER ==
[~2019-09-11] VITALS: Ht 170.2 cm; Wt 120.2 kg
[2019-09-11] MEDS ORDERED: KETOROLAC TROMETHAMINE 30 MG/ML VIAL ONE (05:14)
[2019-09-11] MEDS ORDERED: KETOROLAC TROMETHAMINE 60 MG/2 ML VIAL IM ONE (05:15)
[2019-09-11] MEDS ORDERED: ROBAXIN-750750 MG PO (05:15)
[2019-09-11] MEDS ORDERED: ULTRAM50 MG PO (05:15)
[2019-09-11] MEDS ORDERED: LIDOCAINE PAIN1 EACH TOP (05:15)
--- NOTE | 2019-09-11 05:15 | NUR ---
ICE PACK GIVEN AT PT REQUEST
--- NOTE | 2019-09-11 05:18 | Emergency Department Note ---
History of Present Illnes History of Present Illness Chief Complaint: Back Pain History of Present Illness This is a 34 year old female . Historian: Patient Arrival Mode: Car Emergency Room Doctor Required: No Onset (how long ago): day(s) (2 days lifted a snow cone machine now has right upper thoracic muscle pain, no weakness, no numbness worse with turning and bending no fever no chills no cp or sob) Location: right upper thoracic area Quality: pain Radiation: Reports non-radiation Severity: moderate Onset quality: gradual Duration (how long): day(s) (2) Timing of current episode: constant Progression: unchanged Chronicity: new Context: Denies recent illness, Denies recent surgery, Denies recent immobilization, Denies recent travel, Denies trauma/injury, Denies new medications, Denies hx of DVT/PE, Denies non-compliance w/ medications, Denies other Relieving factors: none Exacerbating factors: movement Associated symptoms: Denies denies other symptoms, Denies confusion, Denies chest pain, Denies cough, Denies diaphoresis, Denies fever/chills, Denies headaches, Denies loss of appetite, Denies malaise, Denies nausea/vomiting, Denies rash, Denies seizure, Denies shortness of breath, Denies syncope, Denies weakness, Denies other Treatments prior to arrival: other (tylenol and flexeril) Past Medical/Family History Physician Review I have reviewed the patient's past medical and family history. Any updates have been documented here. Past Medical History Recent Fever: No Clinical Suspicion of Infectio: No New/Unexplained Change in Ment: No Past Medical History: None Past Surgical History: Cholecysctectomy, Other Surgery: X2 UTERINE D/C Social History Smoking Cessation: Never Smoker Alcohol Use: None Any Illegal Drug Use: No TB Exposure/Symptoms: No Physically hurt or threatened: No Other Last Tetanus: UNKNOWN Is patient up to date on immun: No Last Flu: NONE Last Pneumovax: NA Review of Systems Review of Systems Constitutional: Denies fever Musculoskeletal: Reports muscle pain, Reports neck pain Integumentary: Denies rash Neurological: Denies numbness, Denies paresthesia, Denies weakness Review of other systems: All other systems negative Physical Exam Related Data Allergies: Coded Allergies: ibuprofen (Verified Allergy, Unknown, 12/28/17) ondansetron (Verified Allergy, Unknown, 06/19/19) Triage Vital Signs Vital Signs Date Time Temp Pulse Resp B/P (MAP) Pulse Ox O2 Delivery O2 Flow Rate FiO2 09/11/19 04:50 98.3 85 18 142/93 100 Vital signs reviewed: Yes Physical Exam CONSTITUTIONAL Constitutional: Present well-developed, Present morbidly obese HENT HENT: Present normocephalic EYES Eyes: Reports conjunctivae normal NECK Neck: Present supple PULMONARY Pulmonary: Present breath sounds normal CARDIOVASCULAR Cardiovascular: Present regular rhythm GASTROINTESTINAL Abdominal: Present soft GENITOURINARY SKIN Skin: Present warm MUSCULOSKELETAL Musculoskeletal: Present tenderness (TTP in right upper thoraic area) NEUROLOGICAL Neurological: Present alert, Present oriented x 3, Present no gross motor or sensory deficits PSYCHOLOGICAL Psychological: Present mood/affect normal Assessment & Plan Medical Decision Making MDM muscle strain, radiculopathy, occult fx, ACS, PE, PTX Reassessment Reassessment Pt has reproducible pain in the upper back Assessment & Plan Final Impression: (1) Spasm of thoracic back muscle (2) Muscle strain Depart Disposition: HOME, SELF-CARE Last Vital Signs Date Time Temp Pulse Resp B/P (MAP) Pulse Ox O2 Delivery O2 Flow Rate FiO2 09/11/19 04:50 98.3 85 18 142/93 100 Home Meds Active Scripts Lidocaine (Lidocaine Pain Relief) 1 Each Adh..patch, 5 % TOP DAILY PRN for pain up to 12 hours a day, #7 PATCH Prov:BRIDGET WOLF MD 09/11/19 Tramadol Hcl (ULTRAM) 50 Mg Tablet, 50 MG PO TID PRN for pain for 5 Days, #15 TAB Prov:BRIDGET WOLF MD 09/11/19 Methocarbamol (ROBAXIN-750) 750 Mg Tablet, 750 MG PO QID for 5 Days, #20 Prov:BRIDGET WOLF MD 09/11/19 Cefdinir (OMNICEF) 300 Mg Capsule, 1 TAB PO BID for 10 Days, #20 TAB 0 Refills Complete ALL antibiotics. Prov:CARRI ESTEVES MD 06/15/19 Cyclobenzaprine Hcl (CYCLOBENZAPRINE HCL) 10 Mg Tablet, 10 MG PO TID PRN for pain for 5 Days, #15 TAB Prov:BRIDGET WOLF MD 12/04/18 Tramadol Hcl (ULTRAM) 50 Mg Tablet, 50 MG PO TID for 5 Days, TAB Prov:BRIDGET WOLF MD 12/04/18 Medications in the ED Ketorolac Tromethamine 30 mg ONCE ONCE IM Last administered on 09/11/19at 05:12; Admin Dose 30 MG; Start 09/11/19 at 05:15; Stop 09/11/19 at 05:16; Status UNV Ketorolac Tromethamine 30 mg STK-MED ONCE .ROUTE ; Start 09/11/19 at 05:14; Stop 09/11/19 at 05:09; Status DC BRIDGET WOLF MD Sep 11, 2019 05:18
[2019-09-11 05:25] VITALS: BP 141/90
== END 2019-09-11 05:28 | disposition home or self-care (01) ==
LOC: FSED 04:45
DX: M54.6 Pain in thoracic spine (principal); S23.3XXA Sprain of ligaments of thoracic spine, initial encounter; X50.0XXA Overexertion from strenuous movement or load, initial encounter
CPT/HCPCS: 96372; 99282; J1885